=== PATIENT | male | born 1955 | race Caucasian/White ===

== ENCOUNTER 2018-11-02 10:35 | Observation (INO) ==
[2018-11-02] MEDS ORDERED: ASPIRIN PO ONE (10:53)
[2018-11-02 11:16] LABS: BASO# 0.04 X1000 (0.0-0.2); BASO% 0.4 % (0.0-0.8); EOS# 1.99 X1000 (0.0-0.7); EOS% 21.8 % (0.0-10.0); HEMATOCRIT 43.5 % (42.0-52.0); HEMOGLOBIN 15.4 g/dL (14.0-18.0); IMM GRAN# 0.03 X1000 (0.0-0.04); IMM GRAN% 0.3 % (0.0-0.5); LYMPH# 2.37 X1000 (1.2-3.4); MCH 33.9 PG (27-31); MCHC 35.4 g/dL (33-37); MCV 95.8 FL (81-99); MONO# 0.74 X1000 (0.11-0.59); MONO% 8.1 % (1.7-9.3); MPV 10.3 FL (7.4-10.4); NEUT# 3.96 X1000 (1.4-6.5); NEUT% 43.4 % (42.2-75.2); PLT 235 X1000 (130-400); RBC 4.54 XMIL (4.7-6.1); RDW 12.2 % (11.5-14.5); WBC 9.13 X1000 (4.8-10.8)
--- NOTE | 2018-11-02 11:20 | Diag Imaging Result Doc PS360 ---
CHEST-2 VIEWS - 11/02/2018 INDICATION: CP COMPARISON: None FINDINGS: The lungs are normally expanded and clear. Heart size and mediastinal contours are normal. No pneumothorax or pleural effusion. IMPRESSION: Negative exam. Electronically signed by Denzel Dubois 11/02/2018 11:18 AM
[2018-11-02 11:38] LABS: ALB/GLOB RATIO 1.5; ALBUMIN 4.5 g/dL (3.5-5.0); CALCIUM 9.1 mg/dL (8.8-10.2); CREATININE 1.4 mg/dL (0.7-1.2); POTASSIUM 4.7 mmol/L (3.5-5.1); TOTAL BILIRUBIN 0.82 mg/dL (0.20-1.00); TOTAL PROTEIN 7.6 g/dL (6.3-8.3)
[2018-11-02 11:51] LABS: INR 0.99; PROTIME 13.9 Seconds (11.0-16.0)
[2018-11-02 11:52] LABS: PTT 26.8 Seconds (22.3-41.8)
--- NOTE | 2018-11-02 12:35 | Diag Imaging Result Doc PS360 ---
EXAM: CT HEAD W/O CONTRAST INDICATION: Fainting, ataxia, blurry vision TECHNIQUE: This exam was performed using automated exposure control, adjustment of mA or kV according to patient size, and/or use of iterative reconstruction technique. COMPARISON: None. FINDINGS: There is no definite acute infarct given the limited sensitivity of CT versus MRI. There is no discrete intracranial mass, mass effect, or intracranial hemorrhage. The surrounding soft tissues and bony structures are essentially unremarkable. IMPRESSION: No evidence of acute intracranial pathology. Electronically signed by Vishal Dotson 11/02/2018 12:33 PM
--- NOTE | 2018-11-02 12:55 | EKG Report ---
Test Performed on : 11/02/2018 10:46:56 AM Test Reason : CP Blood Pressure : / mmHG Vent. Rate : 059 BPM Atrial Rate : 059 BPM P-R Int : 184 ms QRS Dur : 084 ms QT Int : 386 ms P-R-T Axes : 011 -10 033 degrees QTc Int : 382 ms Sinus bradycardia. Septal infarct , age undetermined Abnormal ECG No previous ECGs available Unconfirmed Result
--- NOTE | 2018-11-02 15:31 | PROVIDER DOCUMENTATION ---
This chart was entered by Marguerite Harvey Scribe, acting as scribe for Toyin Mendez MD. HPI-General Adult - General Chief Complaint: Chest Pain Stated Complaint: CHEST PAIN, SOB, LIGHTHEADED Time Seen by Provider: 11/02/18 11:39 Source: patient - History of Present Illness -Gen Adult Nature of Presenting Problems: Patient is a 63 year old male who presents with lightheadedness and blurred vision to right eye this morning. States he almost lost his balance this morning. Denies chest pain and nausea. Report having shortness of breath and cough intermittently for 3 weeks. States having a CVA in 2001. Location of Pain/Injury: reports: none Pain Radiation: reports: no radiation Quality of Pain: reports: none Severity: reports: mild Onset/Duration: reports: this morning Timing: reports: improving Context/Activities at Onset: reports: light activity Associated Symptoms: reports: other (lightheadedness and blurred vision to right eye) Similar Symptoms Previously?: No Recently seen or treated by another doctor?: No Review of Systems - Adult - REVIEW OF SYSTEMS - ADULT Constitutional: reports: no symptoms reported. denies: chills, fever, fatique Eyes: reports: see HPI, blurred vision (right eye). denies: decreased vision, double vision Ears, Nose, Mouth & Throat: reports: no symptoms reported Cardiovascular: reports: no symptoms reported. denies: chest pain, heart murmur, palpitations Respiratory: reports: see HPI, cough, shortness of breath. denies: wheezing Gastrointestinal: reports: no symptoms reported Genitourinary: reports: no symptoms reported Musculoskeletal: reports: no symptoms reported Integumentary: reports: no symptoms reported Neurological: reports: see HPI, other (lightheadedness). denies: dizziness/vertigo, headache/migraines, numbness, paresthesia, syncope Psychiatric: reports: no symptoms reported Endocrine: reports: no symptoms reported Hematologic/Lymphatic: reports: no symptoms reported Allergic/Immunologic: reports: no symptoms reported All Other Systems: Reviewed and Negative Past History - Adult - PAST MEDICAL HISTORY-ADULT Review of Records: reports: Old Records Reviewed, Nursing Assessment Review, Medications Reviewed, Social history reviewed & non-contributory. Major Childhood Illnesses: reports: denies history Cardiovascular: reports: denies history Respiratory: reports: denies history Gastrointestinal: reports: denies history Obstetrical/Gynecological: reports: denies history Genitourinary: reports: denies history Musculoskeletal: reports: denies history Neurological: reports: denies history Psychiatric: reports: denies history Endocrine/Immune: reports: denies history Other Conditions: reports: denies history - PRIOR SURGERIES/PROCEDURES Surgical/Procedure History: reports: reviewed, not pertinent - IMMUNIZATION STATUS Childhood Immunizations: See Nurse Assessment Flu Vaccine: See Nurse Assessment - FAMILY HISTORY Family History: reviewed, not pertinent - SOCIAL HISTORY Smoking: cigarettes, chew, less than 1 pack/day Provider spent 3-5 mins advising pt. on dangers of tobacco.: Discussed manners to quit use, and f/u contacts for add'l counseling. Substance Use: denies Living Situation: family Physical Exam-General - PHYSICAL EXAM-ADULT Initial Vital Signs Reviewed: Yes - CONSTITUTIONAL General Appearance: alert, no apparent distress. negative: lethargic, slow to respond - EYES Eyes: PERRL/EOMI, pink conjunctivae. negative: EOM palsy, pale conjunctivae - RESPIRATORY Respiratory: chest non-tender, lungs clear, normal breath sounds. negative: crackles, rhonchi, wheezing - CARDIOVASCULAR Cardiovascular: normal peripheral pulses, regular rate, rhythm. negative: tachycardia, systolic murmur - GASTROINTESTINAL (ABDOMEN) Abdominal Exam: normal bowel sounds, non tender, soft. negative: guarding, rebound - MUSCULOSKELETAL Extremity: non-tender, normal inspection. negative: deformity, erythema - SKIN Integumentary: normal color, normal turgor, warm/dry. negative: cyanosis, ecch ymosis, erythema, jaundice - NEUROLOGIC Neurologic: grossly normal, no motor/sensory deficits. negative: aphasia, facial droop, motor weakness, sensory deficit - PSYCHIATRIC Psych/Mental Status: normal mood/affect, oriented x 3. negative: anxious, paranoid Progress - PLAN OF CARE/RESULTS Progress/Plan/Lab Results: Vital Signs - 8 hr 11/02/18 10:46 Temperature 98.1 F Pulse Rate 64 Respiratory Rate 20 Blood Pressure 142/78 O2 Sat by Pulse Oximetry 98 Laboratory Results - last 24 hr 11/02/18 11/02/18 11/02/18 10:56 10:56 10:56 WBC 9.13 RBC 4.54 L Hgb 15.4 Hct 43.5 MCV 95.8 MCH 33.9 H MCHC 35.4 RDW Std Deviation 12.2 Plt Count 235 MPV 10.3 Immature Gran % (Auto) 0.3 Neut % (Auto) 43.4 Lymph % (Auto) 26.0 [place] % (Auto) 8.1 Eos % (Auto) 21.8 H Baso % (Auto) 0.4 Immature Gran # (Auto) 0.03 Neut # (Auto) 3.96 Lymph # (Auto) 2.37 [place] # (Auto) 0.74 H Eos # (Auto) 1.99 H Baso # (Auto) 0.04 PT INR PTT (Actin FS) Sodium 140 Potassium 4.7 Chloride 103 Carbon Dioxide 26 Anion Gap 11 BUN 13 Creatinine 1.4 H Estimated GFR/1.73 m2 51 BUN/Creatinine Ratio 9 Glucose 112 H Calculated Osmolality 280 Calcium 9.1 Total Bilirubin 0.82 AST 17 ALT 14 Alkaline Phosphatase 81 Creatine Kinase 94 Troponin T Ska-P-Nompwpwsfin Pept 89 Total Protein 7.6 Albumin 4.5 Globulin 3.1 Albumin/Globulin Ratio 1.5 11/02/18 11/02/18 10:56 10:56 WBC RBC Hgb Hct MCV MCH MCHC RDW Std Deviation Plt Count MPV Immature Gran % (Auto) Neut % (Auto) Lymph % (Auto) [place] % (Auto) Eos % (Auto) Baso % (Auto) Immature Gran # (Auto) Neut # (Auto) Lymph # (Auto) [place] # (Auto) Eos # (Auto) Baso # (Auto) PT 13.9 INR 0.99 PTT (Actin FS) 26.8 Sodium Potassium Chloride Carbon Dioxide Anion Gap BUN Creatinine Estimated GFR/1.73 m2 BUN/Creatinine Ratio Glucose Calculated Osmolality Calcium Total Bilirubin AST ALT Alkaline Phosphatase Creatine Kinase Troponin T < 0.010 Kqk-C-Asnlovnrmpi Pept Total Protein Albumin Globulin Albumin/Globulin Ratio Orders Category Date Time Status Cardiac Monitoring DIRECTED Care 11/02/18 10:53 Active Oxygen Therapy- ED Nursing DIRECTED Care 11/02/18 10:53 Active Saline Loc NOW Care 11/02/18 10:53 Active CHEST-2 VIEWS [RAD] Stat Exams 11/02/18 10:[address] HEAD W/O CONTRAST [CT] Stat Exams 11/02/18 11:51 Ordered CBC WITH ELECTRONIC DIFF [HEME] Stat Lab 11/02/18 10:56 Completed CK PROFILE [SP CHEM] Stat Lab 11/02/18 10:56 Completed COMPREHENSIVE METABOLIC PANEL [CHEM] Stat Lab 11/02/18 10:56 Completed PRO B-NATRIURETIC PEPTIDE Stat Lab 11/02/18 10:56 Completed PROTIME WITH INR [COAG] Stat Lab 11/02/18 10:56 Completed PTT [COAG] Stat Lab 11/02/18 10:56 Completed TROPONIN T Stat Lab 11/02/18 10:56 Completed Aspirin Med 11/02/18 10:53 Discontinued 325 mg PO NOW ONE CP/SOB/Palp >45 yrs of Age Stat Oth 11/02/18 10:53 Ordered EKG [EKG] Stat Ther 11/02/18 10:53 Ordered Result Diagrams: 11/02/18 10:56 11/02/18 10:56 - EKG 1 Time of EKG reading by physician:: 10:46 EKG Read and Signed by:: Toyin Mendez EKG Interpretation (*Must complete 3 of following elements*): Abnormal Rate: 59 Rhythm: sinus bradycardia [place]: normal SC Interval: normal Comments: septal infarct, age undetermined - XRAY 1 XRAY Study: Chest Impression: See EMR Report (CHEST-2 VIEWS - 11/02/2018 INDICATION: CP COMPARISON: None FINDINGS: The lungs are normally expanded and clear. Heart size and mediastinal contours are normal. No pneumothorax or pleural effusion. IMPRESSION: Negative exam. Electronically signed by Denzel Dubois 11/02/2018 11:18 AM 11/02/18 1118 Interpreting Physician: Denzel Dubois MD Dictated Date/Time: 11/02/18 1118 cc: Toyin Mendez MD; None,PCP) - CT/MRI 1 CT Study: Head Impression: See EMR Report ( EXAM: CT HEAD W/O CONTRAST INDICATION: Fainting, ataxia, blurry vision TECHNIQUE: This exam was performed using automated exposure control, adjustment of mA or kV according to patient size, and/or use of iterative reconstruction technique. COMPARISON: None. FINDINGS: There is no definite acute infarct given the limited sensitivity of CT versus MRI. There is no discrete intracranial mass, mass effect, or intracranial hemorrhage. The surrounding soft tissues and bony structures are essentially unremarkable. IMPRESSION: No evidence of acute intracranial pathology. Electronically signed by Vishal Dotson 11/02/2018 12:33 PM 11/02/18 1233 Interpreting Physician: Vishal Dotson MD Dictated Date/Time: 11/02/18 1229 cc: Toyin Mendez MD; None,PCP) - CONSULTS/PCP/HOSPITALIST Notification #1 *Consult/PCP/Hospitalist*: BETI Mcwilliams for Hospitalist Time Discussed: 13:02 Reason/Comments: Dr. Mendez consulted with Poppy about patient. Consult Disposition: Will see in ED, Admit Departure - Departure Date of Disposition Decision: 11/02/18 Time of Disposition Decision: 13:02 DIAGNOSIS: TIA (transient ischemic attack) Disposition: ADMITTED INPATIENT 09 Certified Medical Emergency: Emergent Condition: Fair Referrals and Follow-Ups: None,PCP [Primary Care Provider] - - Critical Care Note This patient required my direct & personal management of CC.: No Attestation - Physician/ LAMAR Attestation The physician spent face to face time with patient:: Yes Advanced Practice Provider documentation review:: Supervising physician onsite and consulted in the evaluation and care of this patient. The physician did have a face to face encounter with the patient. This chart was documented by the indicated scribe, (Marguerite Harvey Scribe) and accurately reflects the services I performed and decisions made by me, Toyin Mendez MD, as attested by the provider's signature.
[2018-11-02] MEDS ORDERED: ZOFRAN IV PRN (17:27)
--- NOTE | 2018-11-02 18:35 | HISTORY AND PHYSICAL ---
CHIEF COMPLAINT: Left-sided chest pain with left arm pain x1 month, as well as lightheadedness with blurred vision in the right eye and difficulty with balance. HISTORY OF PRESENT ILLNESS: This is a 63-year-old gentleman who presented to the emergency room complaining of left-sided chest pain with radiation down his left arm that has been intermittent for 1 month. He describes this pain as a crampy type pain that goes across his chest, down the underside of his left arm with some left arm numbness during physical activity. He states shortly after this, he would become lightheaded and nauseated. With rest symptoms would spontaneously resolve. He denied any syncopal episodes, any vomiting, productive cough, or any fevers with this. PAST MEDICAL HISTORY: CVA in 2001 and hypertension. PAST SURGICAL HISTORY: Cholecystectomy and vasectomy. SOCIAL HISTORY: Denies alcohol, tobacco, or illicit drug use. ALLERGIES: No known drug allergies. HOME MEDICATIONS: Norvasc. REVIEW OF SYSTEMS: Discussed with patient with pertinent positives stated in the HPI. He denied any syncope, any dizziness, any palpitations, a productive cough, any fevers or chills, night sweats, any vomiting, diarrhea, constipation, any black or bloody vomitus or stools, any hematuria, dysuria, frequency, urgency. PHYSICAL EXAMINATION: GENERAL: This is a 63-year-old gentleman who is sitting up on the bedside in the emergency room in no distress. VITAL SIGNS: Blood pressure is 131/80, with heart rate of 74, respirations are 20, temperature is 97.7 degrees oral, with room air saturations 98 to 99%. EYES: Pupils equal, round, react to light. EOMs are intact. Sclerae are anicteric. HENT: Head is normocephalic, atraumatic. Mucous membranes are moist. NECK: Supple with trachea midline. CARDIOVASCULAR: Regular rate and rhythm. S1 and S2 are appreciated. He has no murmur. Calves are nontender bilateral with peripheral pulses palpable x4 extremities. PULMONARY: Breath sounds are clear with no increased work of breathing noted. Chest rises and falls symmetrically with respiration. Chest wall is nontender to palpation. GASTROINTESTINAL: Abdomen is soft, nontender, nondistended. Bowel sounds in all 4 quadrants. GENITOURINARY: He has no CVA or suprapubic tenderness. NEUROLOGIC: He is alert and oriented x3. Cranial nerves 2-12 grossly intact. SKIN: Warm and dry. LABS: WBC is 9.1, with hemoglobin 15.4, hematocrit 43.5, and platelets of 235,000. Sodium 140, potassium 4.7, BUN 13, creatinine 1.4, with a glucose of 112. Troponins are negative on multiple occasions. CT of the head reveals no evidence of acute intracranial pathology. Chest x-ray reveals a negative exam. Lungs are normally expanded and clear. Heart size and mediastinal contours are normal. No pneumothorax or pleural effusion. EKG revealed sinus bradycardia at a rate of 59. ASSESSMENT AND PLAN: 1. Chest pain, left arm pain. He will be placed on telemetry. He was given an aspirin in the emergency room. We will continue an aspirin daily. We will continue to trend troponins. Repeat an EKG in the morning. 2. Hypertension. We will continue his Norvasc. 3. Lightheaded and blurred vision. Symptoms have resolved. Will have neuro checks every 4 hours and will check orthostatic vital signs q.12 hours. 4. Shortness of breath. We will monitor saturations. Give oxygen per protocol if needed. 5. Acute kidney injury. We will trend his labs daily. Will renal dose medications as appropriate. We will hold any renal toxic medications. The patient denies any prior history or ever being told that his creatinine was elevated. 6. For DVT prophylaxis will use Lovenox and for GI prophylaxis Prilosec. Further treatments pending hospital course. Dictated by BETI Morse for Dominik Millard MD cc: BETI Morse MD
[2018-11-02] MEDS ORDERED: D5 1/2 NS + KCL 20 MEQ 1,000 ML IV SCH (18:45)
--- NOTE | 2018-11-02 19:01 | HISTORY AND PHYSICAL ---
ADDENDUM: I have seen and examined Mr. Mcnair at the bedside. The was there, the daughter and a granddaughter Mr. Mcnair refers to have had an acute onset of dizziness associated with nauseation and complete visual deficit on the right eye early this morning, which has progressively gotten better. He said he had a stroke almost with similar symptoms in 2001 and at the time he was told that he had a PFO. He used to follow up with Dr. Beebe. PHYSICAL EXAMINATION: His physical exams at this time was completely normal including a thorough neurological exam that did not show any deficits. His visual mueller also seems to be intact and no deficits. His vitals shows a blood pressure of 139/76, pulse of 63, respirations 18, temperature 97.7 degrees. IMAGING STUDIES: I have also reviewed imaging studies including a chest x-ray which shows normal studies. A CT scan of the head without contrast showed no evidence of acute intracranial pathology. An EKG is shows a normal sinus rhythm with normal axis at a rate of about [address]-segment changes or T-waves abnormality. ASSESSMENT: 1. Acute onset of dizziness associated with nauseation and right visual loss, which has completely resolved. This is concerning for a transient ischemic attack versus a structural stroke. We are going to continue neurological observation and do a stroke workup tomorrow morning. 2. Renal failure presumably acute kidney injury. We will continue with gentle IV fluids. 3. History of hypertension, controlled. 4. Previous cerebrovascular accident with right-sided hemiparesis, which has completely resolved leaving no deficits. 5. Recurrent episode of chest discomfort associated with left arm weakness. This would be concerning also for coronary artery disease. The patient's troponins have been done twice and are negative and EKG is also unremarkable. We are going to do an EKG tomorrow morning and trend his troponin for 3 times and we will also have an echocardiogram as part of the stroke workup and a coronary artery disease workup. If the echocardiogram is abnormal, we will get Cardiology and also pursue a stress test. Please refer to the details of the H P which has been dictated in the notes by the nurse practitioner. cc: Dominik Millard MD
[2018-11-03] MEDS ORDERED: PRILOSEC PO SCH ×2 (07:00)
--- NOTE | 2018-11-03 07:29 | EKG Report ---
Test Performed on : 11/03/2018 07:03:58 AM Test Reason : cp Blood Pressure : / mmHG Vent. Rate : 055 BPM Atrial Rate : 055 BPM P-R Int : 200 ms QRS Dur : 080 ms QT Int : 420 ms P-R-T Axes : 026 016 049 degrees QTc Int : 401 ms Sinus bradycardia. Septal infarct (cited on or before 02-NOV-2018) Abnormal ECG When compared with ECG of 02-NOV-2018 10:46, (Unconfirmed) No significant change was found Confirmed by Dory JENNINGS, Clarke Salas ([id number]) on 11/03/2018 9:45:22 AM
[2018-11-03 07:35] LABS: ALB/GLOB RATIO 1.3; ALBUMIN 3.9 g/dL (3.5-5.0); CREATININE 1.5 mg/dL (0.7-1.2); POTASSIUM 4.7 mmol/L (3.5-5.1); TOTAL BILIRUBIN 0.46 mg/dL (0.20-1.00); TOTAL PROTEIN 6.8 g/dL (6.3-8.3)
[2018-11-03 07:48] LABS: BASO# 0.03 X1000 (0.0-0.2); BASO% 0.3 % (0.0-0.8); EOS# 2.47 X1000 (0.0-0.7); EOS% 24.7 % (0.0-10.0); HEMOGLOBIN 14.9 g/dL (14.0-18.0); IMM GRAN# 0.03 X1000 (0.0-0.04); IMM GRAN% 0.3 % (0.0-0.5); LYMPH# 1.83 X1000 (1.2-3.4); LYMPH% 18.3 % (20.5-51.1); MCH 33.6 PG (27-31); MCHC 34.7 g/dL (33-37); MCV 97.1 FL (81-99); MONO# 0.75 X1000 (0.11-0.59); MONO% 7.5 % (1.7-9.3); MPV 10.7 FL (7.4-10.4); NEUT% 48.9 % (42.2-75.2); PLT 228 X1000 (130-400); RBC 4.43 XMIL (4.7-6.1); RDW 12.3 % (11.5-14.5); WBC 10.01 X1000 (4.8-10.8)
[2018-11-03 08:02] LABS: EOS 20 % (1-10); LYMPHS 19 % (21-51); MONO 7 % (1-9); SEGS 53 % (42-75)
[2018-11-03] MEDS ORDERED: LOVENOX SUBQ SCH (09:00)
[2018-11-03] MEDS ORDERED: ASPIRIN PO SCH (09:00)
[2018-11-03] MEDS ORDERED: NORVASC PO SCH (09:00)
--- NOTE | 2018-11-03 10:42 | Diag Imaging Result Doc PS360 ---
EXAM: MRI BRAIN W/WO CONTRAST 11/03/2018 HISTORY: CVA vs TIA TECHNIQUE: T1 sagittal, axial and post gadolinium-enhanced axial with coronal reformation, T2, FLAIR, DWI axial and coronal gradient echo. COMMENT: There are some prominent perivascular spaces. There are also areas of increased T2-weighted signal intensity and a punctate distribution in the centrum semiovale ovale regions and in the subcortical white matter of the anterior parietal lobe on the right. There is a small lacune in the inferior right cerebellar hemisphere. There is no evidence of bleed or abnormal gadolinium enhancement. There is no evidence of restricted diffusion. IMPRESSION: Chronic ischemic microvascular changes. No evidence of acute intracranial disease. Electronically signed by Gumaro Moseley 11/03/2018 10:40 AM
--- NOTE | 2018-11-03 10:44 | Diag Imaging Result Doc PS360 ---
EXAM: MRA BRAIN W/O CONTRAST 11/03/2018 HISTORY: CVA TECHNIQUE: MRA of the brain, 3-D [id number] COMMENT: There is no evidence of aneurysm or major branch occlusion. No other definite abnormality is present. IMPRESSION: Normal MRA of the brain. Electronically signed by Gumaro Moseley 11/03/2018 10:42 AM
--- NOTE | 2018-11-03 13:05 | Diag Imaging Result Doc PS360 ---
EXAM: MRA NECK W/CONT 11/03/2018 HISTORY: CVA TECHNIQUE: Contrast-enhanced MR angiography with 3-D MIPS COMMENT: Both vertebral, common carotid and internal carotid arteries are patent. The subclavian arteries are patent. There is no evidence of significant stenosis. IMPRESSION: Normal cervical MR angiography. Electronically signed by Gumaro Moseley 11/03/2018 1:02 PM
[2018-11-03 16:25] VITALS: BP 117/71
--- NOTE | 2018-11-03 16:31 | ECHO REPORT ---
ORDER DATE: 11/03/2018 INTERPRETING PHYSICIAN: Dr. Ariza CLINICAL INDICATIONS: Stroke. Possible PFO. M-MODE MEASUREMENTS: Left ventricle end diastole: 4.4 cm. Left ventricle end systole: 2.3 cm. Posterior wall: 0.9 cm. Interventricular septum: 0.9 cm. Left atrium: 3.3 cm. Aortic diameter: 3.3 cm. SUMMARY OF 2-DIMENSIONAL IMAGIN. The left ventricular systolic function appears to be normal. Ejection fraction is estimated at 55% to 60%. There is no wall motion abnormality noted. 2. The aortic valve appears to be grossly unremarkable. Color flow mapping unremarkable. The aortic root is not dilated. 3. The right ventricle appears to be normal. 4. The left atrium appears to be normal. 5. The mitral valve looks normal. Color flow mapping unremarkable. 6. Pulsed wave Doppler of mitral inflow shows mild reversal of the E and the A ratio. Ratio is 0.8. 7. Tissue Doppler of septal and lateral mitral annulus averages 11 cm. 8. Pulmonary venous flow is normal. There is no diastolic dysfunction. Pulmonic valve is normal. Color flow mapping unremarkable. 9. Tricuspid valve is normal. Color flow mapping unremarkable. 10.There is no pulmonary hypertension. 11.There is no pericardial effusion, no mass, and no thrombus. CONCLUSIONS: In summary, this echocardiographic study appears to be grossly within normal range. Clinical correlation is recommended. cc: MD Dominik Marshall MD
--- NOTE | 2018-11-04 16:12 | DISCHARGE SUMMARY ---
ADMISSION DATE: 11/02/2018 DISCHARGE DATE: 11/03/2018 DISPOSITION: Home. FOLLOW-UP: PCP. CONSULTATION DURING THIS ADMISSION: None. IMAGING STUDIES OF SIGNIFICANCE: 1. Chest x-ray was negative. 2. Head CT scan showed no evidence of acute intracranial pathology. 3. MRA of the neck showed normal cervical MRI angiography. 4. Echocardiogram shows an ejection fraction of 55 to 60 percent with no wall motion abnormality. Valves were normal. 5. MRA of the brain showed normal MRA. 6. MRI of the brain showed chronic ischemic changes with no evidence of acute intracranial disease. ADMISSION DIAGNOSES: 1. Lightheadedness and blurry vision. 2. Shortness of breath. 3. Acute kidney injury. 4. Chest discomfort. DIAGNOSES AT TIME OF DISCHARGE: 1. Acute onset of dizziness associated with nauseation and right visual loss, questionable TIA versus neurally mediated syncope. MRI was completely normal. Patient got symptoms that resolved and the patient felt better with IV hydration. 2. Renal failure of unclear duration. The patient is advised to follow up with his primary care doctor. He has also been advised that at some point, he would need to be evaluated by Nephrology. 3. Recurrent episode of chest discomfort. The patient's troponin's were trended 3 times were negative. EKGs were also negative. Echocardiogram was completely normal. Patient has been advised to follow up with Cardiology as outpatient basis to do further cardiac workup. DISCHARGE MEDICATIONS: 1. Amlodipine 10 mg daily. 2. with chlorthalidone have been withheld because of volume depletion. The patient has been advised to follow up with his primary care doctor before initiation. PRESENTING COMPLAINT: Left-sided chest pain, lightheadedness, and loss of vision. HISTORY OF PRESENTING COMPLAINT: Mr. Mcnair is a 63-year-old gentleman who has history of hypertension and CVA in 2001, who presented to the emergency department because of dizziness, unbalanced gait, and visual loss in the right eye which progressively got better. Because of concern of possible CVA, patient was admitted to the medical floor. Neuro checks were done. His neurological symptoms resolved completely. Today, he underwent an extensive neurological evaluation including an MRI and MRA which were all negative. An echocardiogram is also negative. A repeat EKG and trending troponin's were all normal as well. Mr. Mcnair refers to be feeling a whole lot better. Upon presentation, his orthostatic vitals were done, however, this was done after the fluid was given to him so we are not pretty sure how to proceed with those symptoms, but there were no orthostatic changes. Anyway, this morning he feels a whole lot better. He does not have any more neurological symptoms, and no chest discomfort either. He feels strong. He thinks he is okay for discharge which I do agree. I think he will need to follow up with his primary care doctor and also with Cardiology. I have also discussed his renal function test. Creatinine is minimally elevated, and I advised him to follow up with also a support engineer. At the time of the discharge, Mr. Mcnair is completely asymptomatic. He has been tolerating his diet.His vitals stable and exams unremarkable. All the discharge instructions have been discussed with him, and he voiced understanding. TIME SPENT: Time spent for discharge is 36 minutes. cc: Dominik Millard MD MTDD
== END 2018-11-03 18:39 | disposition home or self-care (01) ==
LOC: ED 10:35 → 3N 10:36 → INTOOBSV 10:36
PROVIDERS: ATTEND Internal Medicine
CPT/HCPCS: 70450; 70544; 70548; 70553; 71020; 71046; 80053; 82550; 83880; 84484; 85025; 85610; 85730; 93005; 93010; 93306; 96372; 99285; A9270; A9579; G0378; J1650; J3480